=== PATIENT | female | born 1985 | race Caucasian/White ===

== ENCOUNTER 2016-09-24 00:23 | Emergency (ER) | payer MEDICAID ==
[2015-05-21 19:25] VITALS: BMI 28.5
--- NOTE | 2016-09-24 01:26 | OBHP ---
Datetime: 09/24/2016 01:01 IP Adm Impression: Postterm, intrauterine ; No Active Labor IP Admit Plan: Discharge home Admit Comment, IP Provider: chief complaint-contractions HPI 31 y/o at 40.3 wga here with c/o contractions.Contractions are mild and are 3/10 patient was seen in clinic today and was 2 cm dilated. 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.?pre-existing diabetes.reviewed of records indica ilya patient as being non-compliant; Fetus with enlarged kidney PMH denies PSH denies OBGYN HX ; [id number] Social hx denies tobacco,alcohol or illicit drug use Exam see exam section A/P 31 y/o at 40.3 wga with c/o contractions.No change in dilation since her office visit thi s afternoon.discussed early labor versus false labor.patient does not want to be induced and had dec lined indcution 1 week ago as well.prefers to return once active labor starts.has induction scheduled at [facility] in am and would go for induction there in am if no active labor by th at time. -patient discharged home -active labor precautions given Pelvic Type - PN: Adequate Extremities - PN: Normal Abdomen - PN: Normal Back - PN: Normal Lungs - PN: Normal Heart - PN: Normal Neurologic - PN: Normal General - PN: Normal Contraction Comments Provider: irregular Gestation - Est Wks by US: 40.3 EGA AdmitDate IP: 40.3 Vital Signs Provider: Reviewed IP Chief Complaint: Uterine contractions FHR Category Provider Fetus A: Category I Dilatation, Provider: 1-2 Effacement, Provider: 50 Station, Provider: -3 Genitourinary Exam: Normal DTRs - PN: Normal
== END 2016-09-24 00:52 | disposition home or self-care (01) ==
LOC: C.EROB 00:23
DX: O47.1 False labor at or after 37 completed weeks of gestation (principal); Z3A.40 40 weeks gestation of pregnancy

== ENCOUNTER 2018-05-11 13:49 | Emergency (ER) | payer SELFPAY ==
[2018-05-11 13:49] VITALS: BMI 28.5
[2018-05-11 14:03] VITALS: BP 105/70; PULSE 103; RESP 20; TEMP 102.6; O2SAT 99
--- NOTE | 2018-05-11 14:45 | C.PDOC ---
Time Seen by Provider: 05/11/18 14:09 Chief Complaint (Nursing): Flu-like Symptoms History Per: Patient Onset/Duration Of Symptoms: Days (1) Current Symptoms Are (Timing): Still Present Associated Symptoms: Fever, Chills, Sore Throat, Cough, Myalgias, Nasal Congestion Severity: Moderate Recent travel outside of the [place]: No Additional History Per: Prior Records Past Medical History Reviewed: Historical Data, Nursing Documentation, Vital Signs Vital Signs: Last Vital Signs Temp 102.6 F H 05/11/18 13:58 Pulse 103 H 05/11/18 13:58 Resp 20 05/11/18 13:58 BP 105/70 05/11/18 13:58 Pulse Ox 99 05/11/18 13:58 - Medical History PMH: No Chronic Diseases Surgical History: No Surg Hx - [facility] Procedures DELIVERY OF PRODUCTS OF CONCEPTION, EXTERNAL APPROACH (05/21/15) DIVISION OF FEMALE PERINEUM, EXTERNAL APPROACH (05/21/15) REPAIR PERINEUM SKIN, EXTERNAL APPROACH (05/21/15) Family History: States: Unknown Family Hx - Social History Hx Tobacco Use: No Hx Alcohol Use: No Hx Substance Use: No - Immunization History Hx Tetanus Toxoid Vaccination: No Hx Influenza Vaccination: No Hx Pneumococcal Vaccination: No Review Of Systems Except As Marked, All Systems Reviewed And Found Negative. Constitutional: Positive for: Fever, Malaise Eyes: Positive for: Conjunctivae Inflammation ENT: Positive for: Nose Congestion, Throat Pain. Negative for: Ear Pain Cardiovascular: Negative for: Chest Pain Respiratory: Positive for: Cough. Negative for: Shortness of Breath Gastrointestinal: Negative for: Vomiting, Abdominal Pain, Diarrhea Genitourinary: Negative for: Dysuria Musculoskeletal: Negative for: Neck Pain Skin: Negative for: Rash Neurological: Positive for: Headache. Negative for: Weakness, Numbness Physical Exam - Physical Exam Appears: Non-toxic, No Acute Distress Skin: Normal Color, Warm, Dry, No Rash Head: Atraumatic, Normacephalic Eye(s): bilateral: PERRL, EOMI, Other (conjunctival injection) Oral Mucosa: Moist Throat: Erythema, No Exudate, No Drooling, No Mass Neck: Normal ROM, Supple Cardiovascular: Rhythm Regular Respiratory: Normal Breath Sounds, No Accessory Muscle Use Back: No CVA Tenderness Extremity: Normal ROM Neurological/Psych: Oriented x3, Normal Speech, Normal Motor, Normal Sensation ED Course And Treatment O2 Sat by Pulse Oximetry: 99 Pulse Ox Interpretation: Normal Disposition Counseled Patient/Family Regarding: Diagnosis, Need For Followup, Rx Given - Disposition Referrals: [facility] [Outside] Disposition: HOME/ ROUTINE Disposition Time: 14:44 Condition: STABLE Additional Instructions: Follow up in the clinic. Return to the ER if you develop shortness of breath, worsening of symptoms or if you have any other concerns. Prescriptions: Naproxen 375 mg PO BID PRN #20 tablet PRN Reason: Pain, Moderate (4-7) Oseltamivir Cap [Tamiflu] 75 mg PO BID #10 cap Promethazine/Dextromethorphan [Promethazine-Dm Syrup] 5 ml PO Q4 PRN #1 syrup PRN Reason: Cough And Congestion Instructions: Flu, Adult (DC) - Clinical Impression Clinical Impression: Influenza-like illness
== END 2018-05-11 14:56 | disposition home or self-care (01) ==
LOC: C.ER 13:49
DX: J11.1 Influenza due to unidentified influenza virus with other respiratory manifestations (principal)

== ENCOUNTER 2018-05-24 21:12 | Emergency (ER) | payer SELFPAY ==
[2018-05-24 21:12] VITALS: BMI 28.5
[2018-05-24 21:23] VITALS: BP 123/87; PULSE 97; RESP 22; TEMP 98.5; O2SAT 99
--- NOTE | 2018-05-24 22:08 | C.PDOC ---
History Of Present Illness 33 year old female presents to the ER with cough, fever, and chills for the past 2 weeks. Patient states she was seen in here 2 weeks ago and given meds which she took but reports no relief. Denies recent travel, sore throat, vomiting, abdominal pain, SOB, or chest pain. Time Seen by Provider: 05/24/18 21:31 Chief Complaint (Nursing): Cough, Cold, Congestion History Per: Patient History/Exam Limitations: no limitations Onset/Duration Of Symptoms: Days (2 weeks) Current Symptoms Are (Timing): Still Present Location Of Pain: None Sick Contacts (Context): None Associated Symptoms: Fever, Chills, Cough. denies: Sore Throat, Vomiting, Other (Abdominal pain, Chest pain, SOB) Recent travel outside of the [place]: No Past Medical History Reviewed: Historical Data, Nursing Documentation, Vital Signs Vital Signs: Last Vital Signs Temp 98.5 F 05/24/18 21:20 Pulse 97 H 05/24/18 21:20 Resp 22 05/24/18 21:20 BP 123/87 05/24/18 21:20 Pulse Ox 99 05/24/18 21:20 - I & Combine Procedures DELIVERY OF PRODUCTS OF CONCEPTION, EXTERNAL APPROACH (05/21/15) DIVISION OF FEMALE PERINEUM, EXTERNAL APPROACH (05/21/15) REPAIR PERINEUM SKIN, EXTERNAL APPROACH (05/21/15) Family History: States: Unknown Family Hx - Social History Hx Tobacco Use: No Hx Alcohol Use: No Hx Substance Use: No - Immunization History Hx Tetanus Toxoid Vaccination: No Hx Influenza Vaccination: No Hx Pneumococcal Vaccination: No Review Of Systems Constitutional: Positive for: Fever, Chills Cardiovascular: Negative for: Chest Pain Respiratory: Positive for: Cough. Negative for: Shortness of Breath Gastrointestinal: Negative for: Vomiting, Abdominal Pain Skin: Negative for: Rash Physical Exam - Physical Exam Appears: Non-toxic Skin: Normal Color, Warm, Dry Head: Atraumatic, Normacephalic Eye(s): bilateral: Normal Inspection Ear(s): Bilateral: Normal Nose: Normal Oral Mucosa: Moist Throat: Normal, No Erythema, No Exudate Neck: Normal, Supple Chest: Symmetrical, No Tenderness Cardiovascular: Rhythm Regular Respiratory: No Rales, Rhonchi (Scattered), No Wheezing Gastrointestinal/Abdominal: Soft, No Tenderness Neurological/Psych: Oriented x3, Normal Speech ED Course And Treatment O2 Sat by Pulse Oximetry: 99 (Room air) Pulse Ox Interpretation: Normal Medical Decision Making Medical Decision Making: CXR ordered. CXR shows ? viral pneumonitis. Patient is requesting antibiotics. On re-exam, the patient reports improvement of symptoms. Lungs are CTA, heart is RRR, abdomen is soft, non-tender and tolerating PO well. Follow up with the medical doctor within 1-2 days. Return if worsened. Disposition - Disposition Referrals: [facility] [Outside] Disposition: HOME/ ROUTINE Disposition Time: 23:11 Condition: GOOD Additional Instructions: Follow up with the medical doctor within 1-2 days. Return if worsened. 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 - Scribe Statement The provider has reviewed the documentation as recorded by the Scribe Chad Levine All medical record entries made by the Slade were at my direction and personally dictated by me. I have reviewed the chart and agree that the record accurately reflects my personal performance of the history, physical exam, medical decision making, and the department course for this patient. I have also personally directed, reviewed, and agree with the discharge instructions and disposition.
--- NOTE | 2018-05-25 11:19 | RAD ---
HISTORY: cough, x 2 week COMPARISON: None available TECHNIQUE: Chest PA and lateral FINDINGS: LUNGS: Minimal subsegmental atelectasis at the bilateral lung bases. Please note that chest x-ray has limited sensitivity for the detection of pulmonary masses. PLEURA: No significant pleural effusion identified. No definite pneumothorax . CARDIOVASCULAR: The cardiomediastinal silhouette appears within normal limits of size. No atherosclerotic calcification present. OSSEOUS STRUCTURES: No acute osseous abnormality identified. VISUALIZED UPPER ABDOMEN: Unremarkable. OTHER FINDINGS: None. IMPRESSION: Minimal subsegmental atelectasis at the lung bases.
== END 2018-05-24 23:27 | disposition home or self-care (01) ==
LOC: C.ER 21:12
DX: J40 Bronchitis, not specified as acute or chronic (principal)